=== PATIENT | female | born 1955 | race Caucasian/White ===

== ENCOUNTER 2018-05-31 09:39 | Outpatient (CLI) | payer OTHER ==
--- NOTE | 2018-05-31 11:31 | RAD ---
CHEST TWO VIEWS: HISTORY: Chest tightness. COMPARISON: None. FINDINGS: Normal cardiac silhouette. Pulmonary vessels and hilum are normal. Costophrenic angles are clear. Hyperinflation with chronic changes. No consolidation or mass. No pneumothorax or osseous abnormali ties. IMPRESSION: 1. No hyperinflation. Chronic changes. 2. No acute cardiopulmonary process. POS: [facility]
== END 2018-05-31 09:40 | disposition home or self-care (01) ==
LOC: SCSRAD 09:39
PROVIDERS: ATTEND Internal Medicine Gastroenterology
DX: R07.89 Other chest pain (principal); K90.0 Celiac disease; R79.89 Other specified abnormal findings of blood chemistry; G62.9 Polyneuropathy, unspecified
CPT/HCPCS: 71046